=== PATIENT | male | born 1985 | race Hispanic/Latino ===

== ENCOUNTER 2018-02-19 15:24 | Outpatient (CLI) | payer BC ==
--- NOTE | 2018-02-19 16:04 | ULT ---
THYROID ULTRASOUND: Date: 02/19/18 HISTORY: Hypothyroidism. FINDINGS: Multiple longitudinal and transverse images of the thyroid gland obtained using multihertz linear arr ay transducer. Real-time and color flow images demonstrate the right thyroid measures 1.7 x 4.2 x 1.9 cm and the left lobe measures 1.8 x 3.9 x 1.7 cm. Some heterogeneity is seen in both thyroid lobes. The isthmus is unremarkable. There is an approximately 6.0 x 6.0 x 9.0 mm well circumscribed solid le tiffany inferior to the left thyroid lobe. This may represent an exophytic left thyroid lesion versus a nonthyroid lesion in this region. I do recommend follow-up sonography in 4-6 months to confirm stabil ity. Also, correlation with dynamic parathyroid scan imaging may be of use if there is clinical suspi cion for possible parathyroid adenoma. IMPRESSION: Solid lesion inferior aspect left thyroid. Correlate with follow-up sonography and/or possible pre an d postcontrast enhanced dynamic parathyroid imaging. POS: ANANDA
== END 2018-02-19 15:25 | disposition home or self-care (01) ==
LOC: SCSULT 15:24
PROVIDERS: ATTEND Family Medicine
DX: E03.9 Hypothyroidism, unspecified (principal); R74.8 Abnormal levels of other serum enzymes; E07.89 Other specified disorders of thyroid
CPT/HCPCS: 76536

== ENCOUNTER 2018-02-28 08:40 | Outpatient (CLI) | payer BC ==
--- NOTE | 2018-02-28 10:09 | CT ---
ABDOMEN CT SCAN WITH AND WITHOUT IV CONTRAST: History: 32-year-old male with history of elevated liver enzymes, muscles cramps, and weakness. Elevated blood sugar. FINDINGS: Lung bases are clear. The liver, gallbladder, pancreas, spleen, and adrenal glands are unremarkable. No renal calculus or acute obstruction. Partially visualized appendix is normal. No abscess, mass, adenopathy, or abnormal fluid collection within the abdomen. No liver masses or ductal dilatation. IMPRESSION: Unremarkable abdominal CT scan with and without IV contrast. POS: C
== END 2018-02-28 08:41 | disposition home or self-care (01) ==
LOC: SCSCT 08:40
PROVIDERS: ATTEND Family Medicine
DX: R74.8 Abnormal levels of other serum enzymes (principal)
CPT/HCPCS: 74170